=== PATIENT | female | born 1990 | race Caucasian/White ===

== ENCOUNTER 2021-11-20 16:56 | Emergency (ER) | payer BC, SELFPAY ==
[2021-11-20 17:07] VITALS: BMI 43.9
[2021-11-20 17:27] VITALS: BP 169/86; PULSE 104; RESP 18; TEMP 36.8; O2SAT 98; BMI 43.9
[2021-11-20 17:36] LABS: Chloride 100 mmol/L (98-107); Potassium 3.9 mmoL/L (3.5-5.1); Sodium 132 mmol/L (136-145)
[2021-11-20 17:39] LABS: Alanine Aminotransferase 43 U/L (12-78); Albumin Level 4.6 g/dl (3.5-5.0); Albumin/Globulin Ratio 1.4 (1.1-1.8); Alkaline Phosphatase 91 U/L (38-126); Anion Gap 10.9 mEq/L (5-15); Aspartate Amino Transferase 44 U/L (14-36); Bilirubin,Total 0.5 mg/dl (0.2-1.3); Blood Urea Nitrogen 13 mg/dl (7-17); Carbon Dioxide 25 mmol/L (22.0-30.0); Creatinine Clearance Estimated 84 mL/min (50-200); Estimated Glomerular Filt Rate 83 ml/min (>60); GFR (African American) 101 ML/MIN (>60); Globulin 3.3 g/dL (1.3-3.2); Total Protein,Serum 7.9 g/dl (6.3-8.2)
[2021-11-20 17:40] LABS: Calcium 8.8 mg/dl (8.4-10.2); Glucose 107 mg/dl (74-100)
[2021-11-20 17:55] LABS: Microscopic, Urine URINE MICROSCOPIC (MICROSCOPIC)
[2021-11-20 17:56] LABS: Appearance,Urine CLEAR (Clear); Bilirubin,Urine Negative (Negative); Blood, Urine Negative (Negative); Color,Urine YELLOW (Yellow); Glucose,Urine (UA) Negative (Negative); Ketones,Urine Negative (Negative); Leukocyte Esterase,Urine Negative (Negative); Nitrate,Urine Negative (Negative); PH,Urine 8.5 (5.0-8.5); Protein,Urine Negative (Negative); Urobilinogen,Urine 0.2 EU/dl (0.2)
[2021-11-20 17:57] LABS: Urine Pregnancy, HCG Qual. Negative (Negative)
--- NOTE | 2021-11-20 18:25 | HMH.EDGENADL ---
ED Disposition Clinical Impression: Migraine Qualifiers: Migraine type: unspecified Status migrainosus presence: with status migrainosus Intractability: not intractable Qualified Code(s): G43.901 - Migraine, unspecified, not intractable, with status migrainosus Disposition: Home, Self-Care Condition on Discharge: Good Instructions: DI for Migraine Additional Instructions: Home to rest in a dark room. If headache returns follow-up with your primary care provider or return to the emergency department. Return if any new symptoms such as fever, visual changes, numbness or weakness of extremities, intractable vomiting. Referrals: Robret Nieves [Primary Care Provider] - - Critical Care Critical Care Time: No Attestation: On 11/20/21, the high probability of a clinically significant, sudden or life threatening deterioration of the following system(s) required my full and direct attention, intervention and personal management. The time I documented below is in addition to time spent performing reported procedures but includes the following listed in this critical care notation. Medical Decision Making - Kemal Inquiry Pt receiving controlled substance: No Vital Signs: 11/20/21 17:27 11/20/21 19:30 Temperature 98.3 F Temperature Source Oral Pulse Rate 111 H Pulse Rate [Left Radial] 104 H Respiratory Rate 18 Blood Pressure 141/84 H Blood Pressure [Right Arm] 169/86 H Blood Pressure Mean [Right Arm] 113 02 Sat by Pulse Oximetry 98 98 Oxygen Delivery Method Room Air Room Air - Lab Data Lab Results 11/20/21 17:20: WBC 7.6, RBC 4.99, Hgb 11.7 L, Hct 38.0, MCV 76.1 L, MCH 23.5 L, MCHC 30.9 L, RDW 13.5, Plt Count 495 H, MPV 7.9, Neut % (Auto) 79.3, Lymph % (Auto) 14.7, [place] % (Auto) 4.3, Eos % (Auto) 1.3, Baso % (Auto) 0.4, Neut # (Auto) 6.0, Lymph # (Auto) 1.1, [place] # (Auto) 0.3, Eos # (Auto) 0.1, Baso # (Auto) 0.0 11/20/21 17:20: Sodium 132 L, Potassium 3.9, Chloride 100, Carbon Dioxide 25, Anion Gap 10.9, BUN 13, Creatinine 0.80, Estimated Creat Clear 84, Estimated GFR 83, Est GFR ( Amer) 101, Glucose 107 H, Calcium 8.8, Total Bilirubin 0.5, AST 44 H, ALT 43, Alkaline Phosphatase 91, Total Protein 7.9, Albumin 4.6, Globulin 3.3 H, Albumin/Globulin Ratio 1.4 11/20/21 17:49: Urine Color Yellow, Urine Appearance Clear, Urine pH 8.5, Ur Specific [place] 1.020, Urine Protein Negative, Urine Glucose (UA) Negative, Urine Ketones Negative, Urine Blood Negative, Urine Nitrate Negative, Urine Bilirubin Negative, Urine Urobilinogen 0.2, Ur Leukocyte Esterase Negative, Urine RBC None, Urine WBC None, Ur Squamous Epith Cells 10-20, Urine Bacteria None 11/20/21 17:49: Urine HCG, Qual Negative Result diagrams: 11/20/21 17:20 11/20/21 17:20 Orders (Tests/Meds): ED MEDICATIONS Generic Name Dose Route Start Last Admin Trade Name Freq PRN Reason Stop Dose Admin Sodium Chloride 1,000 mls @ 999 mls/hr 11/20/21 17:15 11/20/21 17:27 Sod Chlor 0.9% 1000ml Bag IV 11/20/21 18:15 999 mls/hr .Q1H1M CHIARA Administration Discontinued Medications Generic Name Dose Route Start Last Admin Trade Name Freq PRN Reason Stop Dose Admin Diphenhydramine HCl 25 mg 11/20/21 18:36 11/20/21 19:16 Diphenhydramine 50mg/Ml Vial IV 11/20/21 18:37 25 mg ONCE ONE Administration Ketorolac Tromethamine 15 mg 11/20/21 17:08 11/20/21 17:24 Ketorolac 30mg/Ml Vial IV 11/20/21 17:09 15 mg ONCE ONE Administration Ondansetron HCl 4 mg 11/20/21 17:08 11/20/21 17:24 Ondansetron 4mg/2ml Vial IV 11/20/21 17:09 4 mg ONCE ONE Administration Prochlorperazine Edisylate 10 mg 11/20/21 18:36 11/20/21 19:16 Prochlorperazine 10mg/2ml Vial IV 11/20/21 18:37 10 mg ONCE ONE Administration - Reevaluation(s) Time: 19:46 Reevaluation #1: States headache is resolved. She will be given a dose of Decadron to prevent rebound headache. General Adult HPI - General Chief complaint: Nausea/Vomiti
[2021-11-20 18:29] LABS: Basophils % 0.4 % (0.1-2.0); Eosinophils # 0.1 K/mm3 (0.0-0.4); Eosinophils % 1.3 % (0.1-12.0); Hemoglobin 11.7 g/dL (12.2-16.2); Lymphocytes # 1.1 K/mm3 (0.7-4.5); Lymphocytes % 14.7 % (10-50); Mean Corpuscular HGB Conc 30.9 g/dL (31.8-35.4); Mean Corpuscular Hemoglobin 23.5 pg (27.0-31.2); Mean Corpuscular Volume 76.1 fl (81-99); Mean Platelet Volume 7.9 fl (7.4-10.4); Monocytes # 0.3 K/mm3 (0.1-1.0); Monocytes % 4.3 % (1.7-9.3); Neutrophils % 79.3 % (37.0-80.0); Platelet Count 495 K/mm3 (142-424); Red Blood Count 4.99 M/mm3 (4.20-5.40); Red Cell Distribution Width 13.5 % (11.5-17.5); White Blood Count 7.6 K/mm3 (4.8-10.8)
[2021-11-20 19:30] VITALS: BP 141/84; PULSE 111; O2SAT 98
[2021-11-20 20:04] VITALS: BP 130/70; PULSE 110; RESP 20; TEMP 36.7; O2SAT 99
== END 2021-11-20 20:07 | disposition home or self-care (01) ==
PROVIDERS: Emergency Provider Emergency Medicine; PCP Family Medicine
DX: G43.901 Migraine, unspecified, not intractable, with status migrainosus (principal)
CPT/HCPCS: 80053; 81001; 81025; 85025; 96365; 96375; 99282; 99284; J2405

== ENCOUNTER 2021-11-22 08:50 | Emergency (ER) | payer BC, SELFPAY ==
[2021-11-22 08:51] VITALS: BP 119/72; PULSE 92; RESP 20; TEMP 36.9; O2SAT 99; BMI 43.9
--- NOTE | 2021-11-22 09:20 | [facility].EDGENADL ---
ED Disposition Clinical Impression: Headache Disposition: Home, Self-Care Condition on Discharge: Good Instructions: DI for Migraine Referrals: Robert Nieves [Primary Care Provider] - - Critical Care Critical Care Time: No Attestation: On 11/22/21, the high probability of a clinically significant, sudden or life threatening deterioration of the following system(s) required my full and direct attention, intervention and personal management. The time I documented below is in addition to time spent performing reported procedures but includes the following listed in this critical care notation. Medical Decision Making - Kemal Inquiry Pt receiving controlled substance: No Vital Signs: 11/22/21 08:51 11/22/21 09:40 11/22/21 10:00 Temperature 98.5 F Temperature Source Oral Pulse Rate 81 84 Pulse Rate [Radial] 92 H Respiratory Rate 20 16 Blood Pressure 130/55 L 125/65 Blood Pressure [Right Arm] 119/72 Blood Pressure Mean 86 85 Blood Pressure Mean [Right Arm] 87 Blood Pressure Position [Right Arm] Sitting 02 Sat by Pulse Oximetry 99 99 96 Oxygen Delivery Method Room Air - Lab Data Lab Results 11/22/21 09:15: Urine Color Yellow, Urine Appearance Cloudy, Urine pH 7.5, Ur Specific [place] 1.020, Urine Protein Trace, Urine Glucose (UA) Negative, Urine Ketones 1+, Urine Blood Negative, Urine Nitrate Negative, Urine Bilirubin Negative, Urine Urobilinogen 0.2, Ur Leukocyte Esterase Negative, Urine RBC None, Urine WBC None, Ur Squamous Epith Cells 10-20, Urine Bacteria Trace 11/22/21 09:25: WBC 7.0, RBC 5.02, Hgb 12.0 L, Hct 38.7, MCV 77.1 L, MCH 24.0 L, MCHC 31.1 L, RDW 13.9, Plt Count 396, MPV 6.9 L, Neut % (Auto) 84.7 H, Lymph % (Auto) 11.1, [place] % (Auto) 3.6, Eos % (Auto) 0.3, Baso % (Auto) 0.3, Neut # (Auto) 5.9, Lymph # (Auto) 0.8, [place] # (Auto) 0.3, Eos # (Auto) 0.0, Baso # (Auto) 0.0 11/22/21 09:25: Sodium 133 L, Potassium 3.7, Chloride 103, Carbon Dioxide 25, Anion Gap 8.7, BUN 13, Creatinine 0.80, Estimated Creat Clear 84, Estimated GFR 83, Est GFR ( Amer) 101, Glucose 112 H, Calcium 8.5, Total Bilirubin 0.3, AST 38 H, ALT 43, Alkaline Phosphatase 78, Total Protein 7.7, Albumin 4.5, Globulin 3.2, Albumin/Globulin Ratio 1.4 11/22/21 09:25: Serum HCG, Qual Negative 11/22/21 09:25: Lipase 44 Result diagrams: 11/22/21 09:25 11/22/21 09:25 Orders (Tests/Meds): ED MEDICATIONS Generic Name Dose Route Start Last Admin Trade Name Freq PRN Reason Stop Dose Admin Lactated Ringer's 1,000 mls @ 999 mls/hr 11/22/21 09:45 11/22/21 09:41 Lactated Ringer's 1000 Ml Bag IV 11/22/21 10:45 999 mls/hr .Q1H1M CHIARA Administration Discontinued Medications Generic Name Dose Route Start Last Admin Trade Name Freq PRN Reason Stop Dose Admin Dexamethasone Sodium Phosphate 8 mg 11/22/21 09:19 11/22/21 09:28 Dexamethasone 4mg/Ml 1ml Vial IV 11/22/21 09:20 8 mg ONCE ONE Administration Magnesium Sulfate 1 gm/ Sodium 52 mls @ 100 mls/hr 11/22/21 09:19 11/22/21 09:28 Chloride IV 11/22/21 09:50 100 mls/hr ONCE ONE Administration Ketorolac Tromethamine 15 mg 11/22/21 09:19 11/22/21 09:27 Ketorolac 30mg/Ml Vial IV 11/22/21 09:20 15 mg ONCE ONE Administration Ondansetron HCl 4 mg 11/22/21 09:19 11/22/21 09:27 Ondansetron 4mg/2ml Vial IV 11/22/21 09:20 4 mg ONCE ONE Administration ORDERS Category Date Time Status EKG Request [ECG Request by /Riley] Stat Y 11/22/21 09:19 Ordered Medical Decision Narrative: 31 yo female w/ hx migraines presents for intermittent headache for 1 week. Associated with photophobia, nausea, vomiting. Worsening since duration, not worsened with recumbency, no focal deficits on exam here, GCS 15, HDS with normal range vitals. DDx includes but not limited to migraine headache, tension type headache, electrolyte abnormality, dehydration, UTI, . Will give meds and obtain labs to further assess. After giving meds i
--- NOTE | 2021-11-22 09:32 | ECG_ITS ---
APPROVED REPORT Exam: Resting ECG HR:83 bpm ECG Measurements Heart Rate 83 AXES WY 155 P 33 QRSd 90 QRS 91 QT 363 T 41 QTc 403 Conclusion SINUS RHYTHM BORDERLINE RIGHT AXIS DEVIATION [QRS AXIS > 90] NONSPECIFIC T-WAVE ABNORMALITY BORDERLINE ECG UNCONFIRMED REPORT Electronically signed by : Steven Anthony MD 11/23/2021 08:38:44
[2021-11-22 09:33] LABS: Microscopic, Urine URINE MICROSCOPIC (MICROSCOPIC)
[2021-11-22 09:34] LABS: Basophils % 0.3 % (0.1-2.0); Eosinophils % 0.3 % (0.1-12.0); Hematocrit 38.7 % (37.0-47.0); Lymphocytes # 0.8 K/mm3 (0.7-4.5); Lymphocytes % 11.1 % (10-50); Mean Corpuscular HGB Conc 31.1 g/dL (31.8-35.4); Mean Corpuscular Volume 77.1 fl (81-99); Mean Platelet Volume 6.9 fl (7.4-10.4); Monocytes # 0.3 K/mm3 (0.1-1.0); Monocytes % 3.6 % (1.7-9.3); Neutrophils # 5.9 K/mm3 (1.8-7.8); Neutrophils % 84.7 % (37.0-80.0); Platelet Count 396 K/mm3 (142-424); Red Blood Count 5.02 M/mm3 (4.20-5.40); Red Cell Distribution Width 13.9 % (11.5-17.5)
[2021-11-22 09:40] VITALS: BP 130/55; PULSE 81; O2SAT 99
[2021-11-22 09:40] LABS: Chloride 103 mmol/L (98-107); Potassium 3.7 mmoL/L (3.5-5.1); Sodium 133 mmol/L (136-145)
[2021-11-22 09:42] LABS: Lipase 44 U/L (23-300)
[2021-11-22 09:43] LABS: Alanine Aminotransferase 43 U/L (12-78); Albumin Level 4.5 g/dl (3.5-5.0); Albumin/Globulin Ratio 1.4 (1.1-1.8); Alkaline Phosphatase 78 U/L (38-126); Anion Gap 8.7 mEq/L (5-15); Aspartate Amino Transferase 38 U/L (14-36); Bilirubin,Total 0.3 mg/dl (0.2-1.3); Blood Urea Nitrogen 13 mg/dl (7-17); Calcium 8.5 mg/dl (8.4-10.2); Carbon Dioxide 25 mmol/L (22.0-30.0); Creatinine Clearance Estimated 84 mL/min (50-200); Estimated Glomerular Filt Rate 83 ml/min (>60); GFR (African American) 101 ML/MIN (>60); Globulin 3.2 g/dL (1.3-3.2); Glucose 112 mg/dl (74-100); Total Protein,Serum 7.7 g/dl (6.3-8.2)
[2021-11-22 09:44] LABS: HCG Qualitative, Serum Negative (Negative)
[2021-11-22 09:51] LABS: Appearance,Urine CLOUDY (Clear); Bilirubin,Urine Negative (Negative); Blood, Urine Negative (Negative); Color,Urine YELLOW (Yellow); Glucose,Urine (UA) Negative (Negative); Ketones,Urine 1+ (Negative); Leukocyte Esterase,Urine Negative (Negative); Nitrate,Urine Negative (Negative); PH,Urine 7.5 (5.0-8.5); Protein,Urine TRACE (Negative); Urobilinogen,Urine 0.2 EU/dl (0.2)
[2021-11-22 10:00] VITALS: BP 125/65; PULSE 84; RESP 16; O2SAT 96
[2021-11-22 10:13] LABS: Bacteria,Urine Trace /lpf
--- NOTE | 2021-11-22 10:33 | PC.NURSE ---
PT STATES FEELING BETTER AFTER MEDS GIVEN
[2021-11-22 10:34] VITALS: BP 125/65; PULSE 84; RESP 16; TEMP 36.6; O2SAT 98
== END 2021-11-22 10:36 | disposition home or self-care (01) ==
PROVIDERS: Emergency Provider Student in an Organized Health Care Education/Training Program; PCP Family Medicine
DX: R51.9 Headache, unspecified (principal); R11.10 Vomiting, unspecified; J45.909 Unspecified asthma, uncomplicated
CPT/HCPCS: 80053; 81001; 83690; 84703; 85025; 93005; 96365; 96375; 99283; 99284; J2405